=== PATIENT | male | born 1970 | race African-American/Black ===

== ENCOUNTER 2017-07-11 10:09 | Emergency (ER) | payer SELFPAY ==
[2017-07-11 10:14] VITALS: BP 138/91; PULSE 77; TEMP 98.2; BMI 23.1
--- NOTE | 2017-07-11 11:12 | PDOC ---
History of Present Illness - General Chief Complaint: Injury Stated Complaint: PAIN Time Seen by Provider: 07/11/17 11:09 History Source: Patient Exam Limitations: No Limitations - History of Present Illness Initial Comments: CHIEF COMPLAINT: 46 y/o afebrile male with no significant PMH c/o left sided rib pain x 1 year. HISTORY OF PRESENT ILLNESS: The patient admits a hand truck hit him in the ribs last year at work. He states he's had pain on and off for the past year. THe pain has been bothering him more the past few weeks. He has not taken anything for the pain. He denies SOB. Vital signs on arrival are within normal limits. REVIEW OF SYSTEMS: GENERAL/CONSTITUTIONAL: No fever/chills. CARDIOVASCULAR: No chest pain or shortness of breath. RESPIRATORY: No cough, wheezing, or hemoptysis. MUSCULOSKELETAL: +left rib pain. No neck or back pain. NEUROLOGIC: No headache, vertigo, loss of consciousness, or loss of sensation. PHYSICAL EXAM: GENERAL: The patient is awake, alert, and fully oriented, in no acute distress. He is very well appearing, ambulatory, in NAD or obvious discomfort. HEAD: Normal with no signs of trauma. LUNGS: Clear to auscultation bilaterally. Normal excursion. No respiratory distress or use of accessory muscles. CHEST WALL: Reproducible pain with palpation of left ribs, T6-T8, midaxillary line. 2cm in diameter mass felt at the point of pain with very well defined margins, most likely knot. EXTREMITIES: Normal range of motion, no edema. NEUROLOGICAL: Normal speech, normal gait. CN II-XII grossly intact. Past History - Past Medical History Allergies/Adverse Reactions: Allergies Allergy/AdvReac Type Severity Reaction Status Date / Time No Known Allergies Allergy Verified 07/11/17 10:14 Home Medications: Ambulatory Orders NK [No Known Home Medication] 07/11/17 COPD: No Other medical history: denies - Suicide/Smoking/Psychosocial Hx Smoking History: Never smoked Information on smoking cessation initiated: No Hx Alcohol Use: No Drug/Substance Use Hx: No Substance Use Type: None *Physical Exam - Vital Signs Last Vital Signs Temp Pulse Resp BP Pulse Ox 98.2 F 77 19 138/91 99 07/11/17 10:12 07/11/17 10:12 07/11/17 10:12 07/11/17 10:12 07/11/17 10:12 Medical Decision Making - Medical Decision Making A/P: 46 y/o male with left sided rib pain. Plan is as follows: 1. xray left ribs 2. PO ibuprofen xray left ribs IMPRESSION: (wet read) No obvious rib fracture. No pneumothorax. Gave the patient his results. Suggested he take Ibuprofen at home for the pain and follow RICE instructions. Suggested he return to the ER with any worsening or concerning symptoms. The patient verbalizes understanding of all instructions, has no further questions and is awaiting discharge. *DC/Admit/Observation/Transfer Diagnosis at time of Disposition: Rib pain on left side - Discharge Dispostion Disposition: HOME Condition at time of disposition: Good - Referrals - Patient Instructions Printed Discharge Instructions: DI for Rib Contusion, How To Perform RICE (Rest , Ice, Compress, Elevate) Additional Instructions: Discharge Instructions: -Take 600mg of Ibuprofen every 6 hours with food for pain -Follow RICE instructions -Return to the ER with any worsening or concerning symptoms - Post Discharge Activity Forms/Work/School Notes: Back to Work
[2017-07-11] MEDS ORDERED: IBUPROFEN 600 MG TABLET (FP) PO ONE ×2 (11:44→11:51)
== END 2017-07-11 12:34 | disposition home or self-care (01) ==
LOC: JERFT 10:09
DX: S20.222A Contusion of left back wall of thorax, initial encounter (principal); W20.8XXA Other cause of strike by thrown, projected or falling object, initial encounter; Y93.89 Activity, other specified; Y92.69 Other specified industrial and construction area as the place of occurrence of the external cause; Y99.0 Civilian activity done for income or pay
CPT/HCPCS: 71101-TC; 99281-25